=== PATIENT | female | born 1975 | race Caucasian/White ===

== ENCOUNTER 2024-05-24 11:52 | Outpatient (CLI) | payer MEDICAID, SELFPAY | END 2024-05-24 11:53 | disposition home or self-care (01) | LOC: NFLDREF 05-26 12:48 | PROVIDERS: Visit Provider Physician Assistant | DX: R82.90 Unspecified abnormal findings in urine (principal); R05.9 Cough, unspecified; B33.8 Other specified viral diseases | CPT/HCPCS: 87086 ==

== ENCOUNTER 2024-10-10 14:06 | Outpatient (CLI) | payer MEDICAID, SELFPAY | END 2024-10-10 14:07 | disposition home or self-care (01) | PROVIDERS: Visit Provider Family Medicine | DX: Z11.1 Encounter for screening for respiratory tuberculosis (principal) | CPT/HCPCS: 36415; 86480 ==